=== PATIENT | female | born 1995 | race Caucasian/White ===

== ENCOUNTER 2017-04-01 17:41 | Emergency (ER) | payer OTHER ==
[~2017-04-01] VITALS: Ht 165.1 cm; Wt 136.1 kg
[~2017-04-01 17:41] MED LIST: FLEXERIL10 MG PO; MOTRIN800 MG PO; TYLENOL #31 TAB PO
--- NOTE | 2017-04-01 19:24 | ED GENERAL ADULT ---
History of Present Illness General Chief Complaint: General Adult Stated Complaint: NUMB ALL OVER FOR MONTHS Source: patient Exam Limitations: no limitations Vital Signs & Intake/Output Vital Signs & Intake/Output Vital Signs Date Time Temp Pulse Resp B/P B/P Pulse O2 O2 Flow FiO2 Mean Ox Delivery Rate 04/01 2225 98.2 88 20 135/67 97 Room Air 04/01 2111 98.0 81 16 125/71 98 Room Air 04/017 Room Air Room Air 04/01 1754 98.3 85 15 113/75 100 Room Air ED Intake and Output 04/02 0000 04/01 1200 Intake Total 0 Output Total Balance 0 Intake, Oral 0 Patient 300 lb Weight Weight Reported by Patient Measurement Method Allergies Coded Allergies: NO KNOWN ALLERGIES (NKA) (02/05/11) Reconcile Medications Doxycycline Hyclate (Vibramycin) 100 MG CAPSULE 1 CAP PO BID lyme Prednisone (Deltasone) 20 MG TABLET 1 TAB PO DAILY NEUROPAYTHY Triage Note: PT TO ED FOR INTERMITTENT HAND AND LEG NUMBNESS X "MONTHS' REPORTING SHE HAD BLOODWORK DONE AT PRIMARY AND WAS TOLD "I HAVE SOME SORT OF THYROID PROBLEM BUT I HAVEN'T FOLLOWED UP YET" PT REPORTING TODAY "IF I FOCUS ON WHATEVER IM TOUCHING I CAN FEEL IT BUT I JUST DONT KNOW WHATS GOING ON" Triage Nurses Notes Reviewed? yes Onset: Abrupt Duration: week(s): Timing: recent history : No Patient currently breastfeeds: No HPI: 04/01/17 8 PM 21-year-old female presented to the emergency department for bilateral upper extremity paresthesias. According to the patient over the past several months she's had intermittent episodes of numbness to both hands. She's also had some numbness going up the arms. She also admits to some swelling to the left foot. The swelling to the left foot is subsequently resolved. She denies chest pain shortness of breath or other complaints. There is no fever, there is no rash, there is no tick bite. The onset of the symptoms were abrupt, the duration has been months, the severity is significant; as the symptoms required her to come to the emergency department for care. She has no chest pain or shortness of breath. Past History Travel History Traveled to [place] past 21 day No Medical History Any Pertinent Medical History? 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 No Review of Systems Review of Systems Constitutional: Reports: no symptoms. EENTM: Reports: no symptoms. Respiratory: Denies: short of breath. Cardiovascular: Denies: chest pain. GI: Reports: no symptoms. Genitourinary: Reports: no symptoms. Musculoskeletal: Reports: no symptoms. Skin: Reports: no symptoms. Neurological/Psychological: Reports: paresthesia. Denies: headache, weakness. Hematologic/Endocrine: Reports: no symptoms. Immunologic/Allergic: Reports: no symptoms. All Other Systems: Reviewed and Negative Physical Exam Physical Exam General Appearance: well developed/nourished (will fix that), alert, awake, anxious, mild distress Head: atraumatic, normal appearance Eyes: Bilateral: normal appearance, PERRL, EOMI. Ears, Nose, Throat: normal pharynx, normal ENT inspection Neck: normal inspection, supple, full range of motion Respiratory: normal breath sounds, chest non-tender, no respiratory distress Cardiovascular: regular rate/rhythm Peripheral Pulses: 4+ radial (R), 4+ radial (L) Gastrointestinal: non-tender Back: normal inspection Extremities: normal inspection, normal range of motion, no edema Neurologic/Psych: no motor/sensory deficits, awake, alert, oriented x 3 Reflexes: 4+: knee (R), knee (L). Skin: intact, normal color, warm/dry Core Measures ACS in differential dx? No CVA/TIA Diagnosis: No Severe Sepsis Present: No Septic Shock Present: No Progress Differential Diagnoses I considered the following diagnoses in my evaluation of the patient: [Cervical radiculopathy, Lyme disease, carpal tunnel syndrome, Guillain-Riggs syndrome , peripheral neuropathy, hyperventilation, electrolyte derangement,] Plan of Care: Orders Procedure Date/time Status HUMAN BETA HCG SCREEN 04/01 2015 Complete THYROID STIMULATING HORMONE 04/01 1940 Complete THYROXINE 04/01 1940 Complete LYME TITRE 04/01 1940 Active WESTERGREN SED RATE 04/01 1940 Complete D-DIMER 04/01 1940 Complete COMPREHENSIVE METABOLIC PANEL 04/01 1940 Complete CBC WITHOUT DIFFERENTIAL 04/01 1940 Complete Laboratory Tests 04/01/172014: Anion Gap 9, Estimated GFR > 60, BUN/Creatinine Ratio 17.1, Glucose 75, Calcium 9.5, Total Bilirubin 0.5, AST 21, ALT 32, Alkaline Phosphatase 66, Total Protein 6.8, Albumin 4.2, Globulin 2.6, Albumin/Globulin Ratio 1.6, TSH 3.330, Thyroxine (T4) 9.1, Total Beta HCG NEGATIVE, D-Dimer High Sensitivty < 200, CBC w Diff NO MAN DIFF REQ, RBC 4.93, MCV 89.3, MCH 29.9, RDW 12.8, MPV 8.8, Gran % 67.0, Lymphocytes % 25.2, Monocytes % 6.1, Eosinophils % 1.4, Basophils % 0.3, Absolute Granulocytes 9.1 H, Absolute Lymphocytes 3.4, Absolute Monocytes 0.8 H, Absolute Eosinophils 0.2, Absolute Basophils 0, PUBS MCHC 33.4, ESR Westergren 9, Lyme Disease Antibody Pending 04/01/171941: Total Beta HCG Cancelled Initial ED EKG: none Departure Departure Disposition: HOME OR SELF CARE Condition: Stable Clinical Impression Primary Impression: Neuropathy Secondary Impressions: Paresthesias Referrals: MILLIE ANDERSON MD (PCP/Family) Departure Forms: Customer Survey General Discharge Information Prescriptions: Current Visit Scripts Doxycycline Hyclate (Vibramycin) 1 CAP PO BID #20 CAP Prednisone (Deltasone) 1 TAB PO DAILY #5 Comments 04/01/17 10:10 pm The patient's symptoms are nonspecific. She has bilateral hand paresthesias no objective weakness. She does admit to having lots of ticks around at work. She denies a specific tick bite. Lyme titer is pending. She also admits to some neck pain. Cervical spine x-ray was negative by can't exclude cervical radiculopathy. I will treat her with a short course of prednisone and empirically treat for Lyme's disease. She'll follow-up with her doctor this week and if her symptoms are not improved obtain an MRI of the cervical spine Critical Care Note Critical Care Note Critical Care Time: non-applicable
[2017-04-01 20:39] LABS: ABSOLUTE BASOPHIL COUNT 0 /CUMM (0.0-0.2); ABSOLUTE EOSINOPHIL COUNT 0.2 /CUMM (0.0-0.7); ABSOLUTE GRANULOCYTE CT 9.1 /CUMM (1.4-6.5); ABSOLUTE LYMPH COUNT 3.4 /CUMM (1.2-3.4); ABSOLUTE MONOCYTE COUNT 0.8 /CUMM (0.10-0.60); BASOPHIL % 0.3 % (0.0-2.0); EOSINOPHIL % 1.4 % (0-5); MEAN CORPUSCULAR HGB 29.9 PG (27.0-31.0); MEAN CORPUSCULAR HGB CONC 33.4 G/DL (33.0-37.0); MEAN CORPUSCULAR VOLUME 89.3 FL (81.0-99.0); MEAN PLATELET VOLUME 8.8 FL (7.4-10.4); PLATELET COUNT 312 /CUMM (130-400); RBC DISTRIBUTION WIDTH 12.8 % (11.5-14.5); RED BLOOD CELL CT 4.93 /CUMM (4.20-5.40); WHITE BLOOD CELL COUNT 13.5 /CUMM (4.8-10.8)
--- NOTE | 2017-04-01 22:00 | RADIOLOGY REPORT ---
EXAMINATION: XR CERVICAL SPINE CLINICAL INFORMATION: Pain, injury. COMPARISON: None TECHNIQUE: 3 views FINDINGS: Cervical: Bone mineral density, vertebral body height, and alignment is maintained without evidence of acute fracture or dislocation. There is straightening of the normal cervical lordosis. No focal destructive or sclerotic osseous lesions are seen. Disc and joint space height is maintained without productive or erosive changes. IMPRESSION: Straightening, no evidence of an acute fracture.
[2017-04-01] MEDS ORDERED: DELTASONE20 MG PO (22:15)
[2017-04-01] MEDS ORDERED: VIBRAMYCIN100 MG PO (22:15)
[2017-04-01 22:25] VITALS: BP 135/67
== END 2017-04-01 22:29 ==
LOC: ERH 17:41
PROVIDERS: Emergency Medicine
DX: G62.9 Polyneuropathy, unspecified (principal)
CPT/HCPCS: 86618; 72050

== ENCOUNTER 2017-04-21 14:16 | Emergency (ER) | payer OTHER ==
[~2017-04-21] VITALS: Ht 165.1 cm; Wt 127.0 kg
[~2017-04-21 14:16] MED LIST changes: +DELTASONE20 MG PO; +VIBRAMYCIN100 MG PO
[2017-04-21] MEDS ORDERED: IBUPROFEN800 M1 PO (14:31)
--- NOTE | 2017-04-21 14:49 | ED NOSE COMPLAINT ---
History of Present Illness General Chief Complaint: Epistaxis/Nasal Foreign Body Stated Complaint: SIB PCP FOR COUGHING UP BLOOD Source: patient Exam Limitations: no limitations Vital Signs & Intake/Output Vital Signs & Intake/Output Vital Signs Date Time Temp Pulse Resp B/P B/P Pulse O2 O2 Flow FiO2 Mean Ox Delivery Rate 04/21 1419 97.8 111 18 148/96 99 Room Air Allergies Coded Allergies: NO KNOWN ALLERGIES (NKA) (02/05/11) Reconcile Medications Codeine Phosphate/Guaifenesi (Cheratussin AC Syrup) 10 MG-100 MG/5 ML LIQUID 10 ML PO Q6HP PRN COUGH Doxycycline Hyclate (Vibramycin) 100 MG CAPSULE 1 CAP PO BID lyme Ibuprofen 800 MG TABLET 1 TAB PO PRN PAIN (Reported) Methylprednisolone. (Medrol) 4 MG TAB.DS.PK 1 DP PO AD COUGH 6 on day 1 then reduce by one tablet daily until gone Triage Note: 21 Y/O FEMALE C/O 1 EPISODE THIS MORNING OF COUGHING "UP BLOOD AND THEN IT CAME FROM MY NOSE TOO". PT STATES SHE HAS HAD NASAL CONGESTION X 2 DAYS. CURRENTLY BEING TREATED TO LYME DISEASE AND IS ON DOXYCYCLINE. DUE FOR HEAD CT Apr; STATES HER DOCTOR ORDERED IT BECAUSE SHE HAS BEEN HAVING MIGRAINES DENIES ANY OTHER COMPLAINTS. AFEBRILE Triage Nurses Notes Reviewed? yes Onset: Abrupt Duration: day(s): (2), constant, continues in ED, getting worse Timing: single episode today Injury Environment: home Severity: mild, moderate Severity Numbers: 5 No Modifying Factors: none Associated Symptoms: cough LMP (ages 10-50): unknown : No Patient currently breastfeeds: No HPI: 21-year-old female with a past medical history of Lyme disease and asthma presents for evaluation of hemoptysis. Patient states that over the past few days she's been having a gradually worsening cough and nasal congestion. Earlier today she was having a coughing fit and coughed up blood streaked sputum. She states that she had bloody sputum on 7 occasions today. She also reports that one point she also had a nosebleed. The bleeding stopped easily with compression. She is reports some associated shortness of breath. No fevers, no lower extremity edema, no abdominal pain, nausea, vomiting, diarrhea or any other associated symptoms. No recent trauma or recent surgery. She had a estrogen implanted device removed a few weeks ago. She does not smoke. No drug use. No chest pain. She has a history of asthma feels this is different. (KIMBERLY PARRISH PA-C) Past History Travel History Traveled to [place] past 21 day No Medical History Any Pertinent Medical History? 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 No (KIMBERLY PARRISH PA-C) Review of Systems Review of Systems Constitutional: Reports: no symptoms. EENTM: Reports: see HPI, throat pain. Respiratory: Reports: see HPI, hemoptysis, short of breath. Cardiovascular: Reports: no symptoms. GI: Reports: no symptoms. Genitourinary: Reports: no symptoms. Musculoskeletal: Reports: no symptoms. Skin: Reports: no symptoms. Neurological/Psychological: Reports: no symptoms. Hematologic/Endocrine: Reports: no symptoms. Immunologic/Allergic: Reports: no symptoms. All Other Systems: Reviewed and Negative (KIMBERLY PARRISH PA-C) Physical Exam Physical Exam Nose: normal inspection Comments: General: Hemodynamically stable. Afebrile. Well-developed well-nourished person in no acute distress. Head: Atraumatic, normocephalic Eyes: EOMI bilaterally, PERRLA, conjunctiva are not injected, no discharge, no nystagmus, fundus grossly normal bilaterally Nose: Atraumatic, no rhinorrhea, mucosa is not erythematous, no epistaxis. Sinuses are non-tender Ears: TM pearly gonzalez color bilaterally, external canal is clear, no discharge, hearing is normal Mouth: Appropriate dentition, no gingival bleeding, moist mucus membranes, no oral lesions, tonsils not erythematous or enlarged and free of exudate. Uvula rises midline. Neck: Supple, full active ROM, no lymphadenopathy, no midline tenderness to palpation, no thyromegaly, no tracheal deviation. Back: Non-tender, full active ROM, no scoliosis, no CVA tenderness Cardiovascular: regular rate and rhythm, no murmurs, rubs, or gallops. No JVD Respiratory: Chest is nontender. Regular respiratory rate and effort. No accessory muscle use. Lungs clear to auscultation bilaterally. Abdomen: Soft, non-tender, non-distended, no organomegaly. No rebound tenderness or guarding. Normoactive bowel sounds. Extremities: No edema. No gross deformities. No joint swelling. No calf swelling or tenderness. Full active and passive ROM. Strength 5/5 in upper and lower extremities. Peripheral pulses 2+ bilaterally, Patellar DTR 2+ Neuro: No confusion. Motor and sensory function is intact. Appropriate gait. Cerebellar function intact. Skin: Warm and dry. Appropriate turgor. No lesions or bruising. No appreciable rash on exposed skin. (FRANCOIS KING,KIMBERLY) Progress Differential Diagnoses I considered the following diagnoses in my evaluation of the patient: [Pulmonary embolism, pneumonia, asthma exacerbation, viral upper respiratory infection, epistaxis, Jadyn-Morocho tear, GI bleeding,] Plan of Care: Orders Procedure Date/time Status URINE 04/21 1456 Complete URINALYSIS 04/21 1456 Complete TROPONIN LEVEL 04/21 1456 Complete D-DIMER 04/21 1456 Complete COMPREHENSIVE METABOLIC PANEL 04/21 1456 Complete CBC WITHOUT DIFFERENTIAL 04/21 1456 Complete EKG 04/21 1456 Active Laboratory Tests 04/21/17 1525: Urine Color YEL, Urine Clarity CLEAR, Urine pH 6.0, Ur Specific [place] 1.020, Urine Protein NEG, Urine Ketones NEG, Urine Nitrite NEG, Urine Bilirubin NEG, Urine Urobilinogen 0.2, Ur Leukocyte Esterase NEG, Ur Microscopic EXAM NOT REQUIRED, Urine Hemoglobin NEG, Urine Glucose NEG, Urine Test NEGATIVE 04/21/17 1515: Anion Gap 9, Estimated GFR > 60, BUN/Creatinine Ratio 20.0, Glucose 80, Calcium 9.6, Total Bilirubin 0.3, AST 26, ALT 40, Alkaline Phosphatase 63, Troponin I < 0.01, Total Protein 6.6, Albumin 4.1, Globulin 2.5, Albumin/Globulin Ratio 1.6, D-Dimer High Sensitivty < 200, CBC w Diff NO MAN DIFF REQ, RBC 4.75, MCV 89.8, MCH 30.0, RDW 13.1, MPV 8.7, Gran % 73.3, Lymphocytes % 17.5 L, Monocytes % 7.6 , Eosinophils % 1.4, Basophils % 0.2, Absolute Granulocytes 8.1 H, Absolute Lymphocytes 1.9, Absolute Monocytes 0.8 H, Absolute Eosinophils 0.2, Absolute Basophils 0, PUBS MCHC 33.5 Patient seen and evaluated. She is tachycardic having hemoptysis and recently was on estrogen. She will have a CTA to rule out pulmonary embolism. She also have basic blood work and EKG. No wheezing noted on exam. Patient is nontoxic- appearing and afebrile oh respiratory distress. 4:30 PM: CTA of the chest is negative for pulmonary embolism. Blood work is within normal limits. Patient will be given a prescription for Robitussin-AC and Medrol Dosepak. No signs of pneumonia. Patient is nontoxic-appearing and afebrile. No signs wrist or distress. Reviewed all results of today's visit with patient. Patient is nontoxic-appearing and agrees with the plan. I discussed with the patient at length all of their results. I had an extensive conversation regarding need for close follow up with their primary care physician this week as well as return precautions. I answered all of their questions, they feel comfortable with the plan and follow-up care. I discussed with the patient/family the medications that they will receive. I gave them signs and symptoms that could indicate an adverse reaction. I have advised them to limit their activities until they can see how they respond to the medication. (FRANCOIS KING,KIMBERLY) Diagnostic Imaging: Viewed by Me: CT Scan. Discussed w/RAD: CT Scan. Initial ED EKG: SINUS TACH Comments: PATIENT: VALERIA CLINE PRESENT AGE: 21 PATIENT ACCOUNT NO: [id number] : 94 LOCATION: [facility] ORDERING PHYSICIAN: KIMBERLY PARRISH PA-C SERVICE DATE: 04/21/17 EXAM TYPE: CAT - CTA CHEST-PULMONARY EMBOLISM EXAMINATION: CT ANGIOGRAM OF THE CHEST WITH AND WITHOUT CONTRAST (CT PULMONARY ANGIOGRAM FOR PE) CLINICAL INFORMATION: Hemoptysis. Shortness of breath. Tachycardia. COMPARISON: Chest radiograph 09/25/2012 TECHNIQUE: Prior to contrast administration, noncontrast localization images were obtained. Subsequently, multidetector volumetric imaging was performed from the thoracic inlet to below the diaphragms following the administration of 95 mL Optiray 350 intravenous contrast. No contrast reaction reported. Sagittal, coronal, and MIP oblique sagittal reformatted images were obtained on the CT workstation, uploaded to PACS, and reviewed. Total exam dose-length product 656 mGy-cm. FINDINGS: QUALITY OF STUDY/CONTRAST BOLUS: Satisfactory PULMONARY ARTERIES: No central or segmental pulmonary emboli. THORACIC AORTA: No aneurysm or dissection. LUNG: No focal consolidation, nodules or masses. The central airways are patent. PLEURA: No pleural effusion or pneumothorax. MEDIASTINUM: Normal heart size. No pericardial effusion. No hilar or mediastinal lymphadenopathy. Residual thymic tissue noted. No evidence of septal bowing or right heart strain. CHEST WALL/AXILLA: No axillary or internal mammary lymphadenopathy. OSSEOUS STRUCTURES: No acute or suspicious osseous abnormality. UPPER ABDOMEN: Unremarkable. No reflux of contrast into the hepatic veins to suggest elevated right heart pressures. IMPRESSION: No pulmonary embolism or other acute intrathoracic abnormality. VTE: negative DICTATED BY: AVANI HAMMOND MD DATE/TIME DICTATED:04/21/171614 CERTIFIED MEDICAL TECHNICIAN ASSISTANT:YOUNG DATE/TIME TRANSCRIBED:04/21/171614 CONFIDENTIAL, DO NOT COPY WITHOUT APPROPRIATE AUTHORIZATION. (KIMBERLY PARRISH PA-C) Departure Departure Disposition: HOME OR SELF CARE Condition: Stable Clinical Impression Primary Impression: Hemoptysis Referrals: MILLIE ANDERSON MD (PCP/Family) Additional Instructions: Take Medrol Dosepak as directed for the full course. Robitussin-AC cough suppressant every 4-6 hours as needed for cough. This may cause drowsiness. Continue to use your albuterol inhaler every 4-6 hours as needed for cough or trouble breathing. 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 Make a follow-up appointment with your primary care doctor this coming week to review all results of today's visit. Return to the emergency department with any concerns. Departure Forms: Customer Survey General Discharge Information Prescriptions: Current Visit Scripts Codeine Phosphate/Guaifenesi (Cheratussin AC Syrup) 10 ML PO Q6HP PRN COUGH #240 ML Methylprednisolone. (Medrol) 1 DP PO AD #1 DP 6 on day 1 then reduce by one tablet daily until gone (KIMBERLY PARRISH PA-C) PA/FLY FINISHER Co-Sign Statement Statement: ED Attending supervision documentation- I saw and evaluated the patient. I have also reviewed all the pertinent lab results and diagnostic results. I agree with the findings and the plan of care as documented in the PA's/FLY FINISHER's documentation. x I have reviewed the ED Record and agree with the PA's/FLY FINISHER's documentation. [] Additions or exceptions (if any) to the PAs/FLY FINISHER's note and plan are summarized below: [] (JORGE LUIS GARCIA,NORM)
[2017-04-21 15:36] LABS: ABSOLUTE BASOPHIL COUNT 0 /CUMM (0.0-0.2); ABSOLUTE EOSINOPHIL COUNT 0.2 /CUMM (0.0-0.7); ABSOLUTE GRANULOCYTE CT 8.1 /CUMM (1.4-6.5); ABSOLUTE LYMPH COUNT 1.9 /CUMM (1.2-3.4); ABSOLUTE MONOCYTE COUNT 0.8 /CUMM (0.10-0.60); BASOPHIL % 0.2 % (0.0-2.0); EOSINOPHIL % 1.4 % (0-5); GRANULOCYTE % 73.3 % (42.2-75.2); HEMATOCRIT 42.7 % (37-47); MEAN CORPUSCULAR HGB CONC 33.5 G/DL (33.0-37.0); MEAN CORPUSCULAR VOLUME 89.8 FL (81.0-99.0); MEAN PLATELET VOLUME 8.7 FL (7.4-10.4); PLATELET COUNT 261 /CUMM (130-400); RBC DISTRIBUTION WIDTH 13.1 % (11.5-14.5); RED BLOOD CELL CT 4.75 /CUMM (4.20-5.40)
--- NOTE | 2017-04-21 16:23 | CT SCAN REPORT ---
EXAMINATION: CT ANGIOGRAM OF THE CHEST WITH AND WITHOUT CONTRAST (CT PULMONARY ANGIOGRAM FOR PE) CLINICAL INFORMATION: Hemoptysis. Shortness of breath. Tachycardia. COMPARISON: Chest radiograph 09/25/2012 TECHNIQUE: Prior to contrast administration, noncontrast localization images were obtained. Subsequently, multidetector volumetric imaging was performed from the thoracic inlet to below the diaphragms following the administration of 95 mL Optiray 350 intravenous contrast. No contrast reaction reported. Sagittal, coronal, and MIP oblique sagittal reformatted images were obtained on the CT workstation, uploaded to PACS, and reviewed. Total exam dose-length product 656 mGy-cm. FINDINGS: QUALITY OF STUDY/CONTRAST BOLUS: Satisfactory PULMONARY ARTERIES: No central or segmental pulmonary emboli. THORACIC AORTA: No aneurysm or dissection. LUNG: No focal consolidation, nodules or masses. The central airways are patent. PLEURA: No pleural effusion or pneumothorax. MEDIASTINUM: Normal heart size. No pericardial effusion. No hilar or mediastinal lymphadenopathy. Residual thymic tissue noted. No evidence of septal bowing or right heart strain. CHEST WALL/AXILLA: No axillary or internal mammary lymphadenopathy. OSSEOUS STRUCTURES: No acute or suspicious osseous abnormality. UPPER ABDOMEN: Unremarkable. No reflux of contrast into the hepatic veins to suggest elevated right heart pressures. IMPRESSION: No pulmonary embolism or other acute intrathoracic abnormality. VTE: negative
[2017-04-21 16:35] VITALS: BP 146/70
[2017-04-21] MEDS ORDERED: MEDROL4 M2 PO (16:35)
[2017-04-21] MEDS ORDERED: CHERATUSSIN AC118 M1 PO (16:35)
== END 2017-04-21 16:41 ==
LOC: ERH 14:16
PROVIDERS: Physician Assistant Medical
DX: R04.2 Hemoptysis (principal); R06.02 Shortness of breath
CPT/HCPCS: 81003; 81025; 93005; 93010